=== PATIENT | female | born 1995 | race Two or more races ===

== ENCOUNTER 2023-09-20 22:48 | Emergency (ER) | payer MEDICAID ==
[~2023-09-20] VITALS: Ht 167.6 cm; Wt 65.8 kg
[2023-09-21] MEDS ORDERED: IBUPROFEN 600 MG TABLET ONE (00:07)
[2023-09-21] MEDS: IBUPROFEN 600 MG TABLET PO ONE (00:10)
[2023-09-21] MEDS: ACETAMINOPHEN ES 500 MG TABLET PO ONE (00:23)
[2023-09-21] MEDS ORDERED: ACETAMINOPHEN ES 500 MG TABLET ONE (00:23)
[2023-09-21 02:25] VITALS: TEMP 98.1; O2SAT 99
== END 2023-09-21 02:26 | disposition home or self-care (01) ==
LOC: ER 22:52
DX: S93.402A Sprain of unspecified ligament of left ankle, initial encounter (principal); W18.39XA Other fall on same level, initial encounter; Y93.89 Activity, other specified; Y92.098 Other place in other non-institutional residence as the place of occurrence of the external cause; Y99.8 Other external cause status
CPT/HCPCS: 73610-TC